=== PATIENT | female | born 1960 | race Caucasian/White ===

== ENCOUNTER → 2022-11-08 | Outpatient (CLI) | payer SELFPAY, OTHER ==
--- NOTE | 2022-11-08 09:30 | MRI_ITS ---
STUDY: MRI RIGHT KNEE REASON FOR EXAM: Female, 62 years old. Chronic knee pain. TECHNIQUE: Standardized fat and water weighted pulse sequences were obtained in all 3 orthogonal planes. COMPARISON: Left knee x-rays dated October 2022. FINDINGS: Marked loss of substance of the medial meniscus with truncation of the posterior horn, body and anterior horn and extrusion of the remnants of the medial meniscus. Near complete loss of articular cartilage of the medial femorotibial compartment with reactive subchondral bone marrow edema and osteophyte formation (coronal series 7 images 8-19). Mild MCL sprain (coronal series 7 image 15). Normal distal semimembranosus, gracilis and semitendinosus tendons. Normal lateral meniscus. Moderate thinning of the articular cartilage of the lateral femorotibial compartment with small osteophytes (coronal series 7 images 10-17). Normal proximal tibiofibular articulation. Normal lateral collateral (fibular) ligament. Normal popliteus tendon. Normal biceps femoris tendon. Normal anterior cruciate ligament (ACL). Normal posterior cruciate ligament (PCL). Lateral tilt and subluxation of the patella with moderate thinning of the articular cartilage of the patellofemoral compartment with reactive subchondral bone marrow edema and osteophytes (axial series 3 images 15-21). Normal medial and lateral patellar retinaculum. Normal quadriceps tendon. Normal patellar tendon. Normal Hoffa''s fat pad. Moderate to large joint effusion with large dissecting, septated popliteal cyst which is ruptured distally (axial series 3 images 9-21). Marked prepatellar subcutaneous soft tissue edema (sagittal series 4 images 8-18). Circumscribed septated lesion in the proximal tibia predominantly in the inner aspect of the lateral tibial plateau extending to the subarticular surface with intermediate signal intensity on the proton density images and predominantly high signal on the inversion recovery images. This lesion is most likely a simple cyst and has no aggressive features (coronal series 6 and 7 images 9-19).. MRI/Lower Ext Joint Only (Routine) IMPRESSION: Marked loss of substance of the medial meniscus with truncation of the posterior horn, body and anterior horn and extrusion of the remnant of the medial meniscus. Near complete loss of articular cartilage of the medial femorotibial compartment. Mild MCL sprain. Moderate thinning of the articular cartilage of the lateral femorotibial compartment. Lateral tilt and subluxation of the patella with moderate thinning of the articular cartilage of the patellofemoral compartment. Circumscribed lesion in the proximal tibia most likely representing septated cyst. No aggressive features associated with this lesion. Moderate to large joint effusion with large dissecting septated popliteal cyst rupture distally. Marked prepatellar subcutaneous soft tissue edema. Electronically Signed: Yifan Baldwin MD at 15:52 EDT ,
== END | disposition home or self-care (01) ==
PROVIDERS: PCP Family Medicine; Referring Provider Orthopaedic Surgery; Visit Provider Orthopaedic Surgery
DX: M85.661 Other cyst of bone, right lower leg (principal)
CPT/HCPCS: 73721

== ENCOUNTER → 2023-01-02 | Outpatient (CLI) | payer SELFPAY, OTHER ==
--- NOTE | 2023-01-02 06:48 | MRI_ITS ---
STUDY: MRI RIGHT KNEE, WITHOUT AND WITH IV CONTRAST REASON FOR EXAM: Female, 62 years old. Bone lesion, follow up to prior scan 11/25. TECHNIQUE: Standardized fat and water weighted pulse sequences were obtained in all 3 orthogonal planes. Following the intravenous administration of 15 cc Clariscan contrast, additional postcontrast imaging was obtained. COMPARISON: Right knee MRI dated 11/08/2022. FINDINGS: Again seen is a lobulated cystic subcortical lesion in the proximal tibia, overall measuring 2.9 cm AP, 2.9 cm transverse, and 3.0 cm craniocaudad. Following IV contrast administration, there is thin peripheral rim enhancement without internal enhancement, indicating nonaggressive cyst. Again seen is a horizontal tear of the posterior horn of the medial meniscus (sagittal T1 series 7 images 15-17). There is stable degenerative arthrosis of the medial femorotibial compartment with joint space narrowing, marginal osteophyte formation, high-grade chondromalacia, and subchondral marrow edema on both sides of the joint. Normal medial collateral ligamentous complex (MCL). Normal distal semimembranosus, gracilis and semitendinosus tendons. Normal lateral meniscus. Normal hyaline cartilage of the lateral femorotibial compartment. There is mild osteoarthritic spur formation of the lateral knee compartment. Normal proximal tibiofibular articulation. Normal lateral collateral (fibular) ligament. Normal popliteus tendon. Normal biceps femoris tendon. Normal anterior cruciate ligament (ACL). Normal posterior cruciate ligament (PCL). There is mild osteoarthritic spur formation of the patellofemoral compartment. Normal hyaline cartilage of the patellofemoral compartment. Normal medial and lateral patellar retinaculum. Normal quadriceps tendon. Normal patellar tendon. Normal Hoffa''s fat pad. There is a stable small joint effusion. There is a stable small popliteal cyst. The soft tissues are unremarkable. MRI/Lower Ext Joint Only W/WO Cont IMPRESSION: 2.9 x 2.9 x 3.0 cm nonaggressive cyst in the proximal tibia. Persistent horizontal tear of the posterior horn of the medial meniscus. Persistent tricompartment degenerative arthrosis, most severe in the medial femorotibial compartment. Stable small joint effusion with stable small popliteal cyst. Electronically Signed: Corby Jones MD at 8:44 EDT ,
== END | disposition home or self-care (01) ==
PROVIDERS: PCP Family Medicine
DX: D49.2 Neoplasm of unspecified behavior of bone, soft tissue, and skin (principal)
CPT/HCPCS: 73723; A9575

== ENCOUNTER → 2023-01-24 | Outpatient (CLI) | payer SELFPAY, OTHER ==
--- NOTE | 2023-01-24 12:04 | CT_ITS ---
PROCEDURE: CT RIGHT KNEE WITHOUT CONTRAST REASON FOR EXAM: Female, 62 years old. Preoperative planning for the MakoPlasty Robotic knee surgery. Knee pain. TECHNIQUE: Transaxial CT of the hip, knee and ankle were obtained. Coronal and sagittal reconstruction images of the knee were provided. Individualized dose optimization techniques were used for this CT. COMPARISON: None. FINDINGS: Standard protocol for the preoperative planning for the MakoPlasty robotic knee surgery was performed. Osteopenia with moderate arthrosis of the right hip, moderate tricompartmental arthrosis of the knee with large subchondral cyst of the proximal tibia measuring approximately 3 cm in widest diameter and mild arthrosis of the tibiotalar joint. CT/Extremity Lower without Contra IMPRESSION: Preoperative MakoPlasty Robotic knee surgical CT evaluation with findings as described above. Electronically Signed: Yifan Baldwin MD at 12:32 EST ,
== END | disposition home or self-care (01) ==
LOC: CT 11:48
PROVIDERS: PCP Family Medicine; Referring Provider Orthopaedic Surgery; Visit Provider Orthopaedic Surgery
DX: M17.11 Unilateral primary osteoarthritis, right knee (principal)
CPT/HCPCS: 73700

== ENCOUNTER 2023-01-31 05:15 | Day surgery (SDC) | payer SELFPAY, OTHER ==
[2023-01-24 13:14] LABS: Absolute Neutrophil Count 3.5 X10^3/uL (2.0-7.7); Basophil# 0.04 X10^3/uL; Basophil% 0.7 % (0-1); Eosinophil# 0.15 X10^3/uL; Eosinophils% 2.7 % (0-5); Hematocrit 37.6 % (37-47); Hemoglobin 12.4 g/dL (12.0-15.0); Mean Corpuscular Hgb 29.7 pg (27.0-32.0); Mean Platelet Vol. 9.5 fl (6.2-12.0); Monocyte# 0.63 X10^3/uL; Monocyte% 11.1 % (0-10); NRBC Flagged by Analyzer 0 % (0-5); Neutrophil # 3.52 X10^3/uL (2.7-7.7); Neutrophil % 62.1 % (47-70); Platelet Count 274 K/mm3 (150-450); RBC Distribution Width SD 42.8 fl (35.1-43.9); Red Blood Count 4.18 M/mm3 (4.2-5.4); White Blood Count 5.7 K/mm3 (4.4-11.0)
[2023-01-24 13:21] LABS: International Normalized Ratio 0.9; Prothrombin Time (Protime)PT. 12.5 SECONDS (11.7-14.9)
[2023-01-24 13:31] LABS: Hemoglobin A1c 5.6 % (3.8-5.6)
[2023-01-24 13:43] LABS: Anion Gap 3 (5-15); BUN 20 mg/dL (7-18); BUN/Creat Ratio 27.3 RATIO (10-20); Calcium,Total 9.2 mg/dL (8.5-10.1); Chloride 109 mmol/L (98-107); Creatinine, Serum 0.73 mg/dL (0.55-1.02); EST Glomerular Filtration Rate 85 mL/min (>60); Est Glom Filt Rate - Afr Amer 103 mL/min (>60); Glucose 90 mg/dL (74-106); Magnesium 2.3 mg/dL (1.6-2.6); Potassium 4.2 mmol/L (3.5-5.1); Sodium Level 140 mmol/L (136-145)
[2023-01-27 07:07] LABS: Fructosamine 252 umol/L (0-285)
[2023-01-31] VITALS (11 sets, daily range): BP systolic 102–151; BP diastolic 57–79; PULSE 52–75; RESP 14–16; TEMP 36.1–36.3; O2SAT 94–100; BMI 31.4
[2023-01-31] MEDS: Magnesium 1 GM over 15 mins IV (05:50)
[2023-01-31] MEDS: Lactated Ringers 1,000 ML 15 ML IV (06:01)
[2023-01-31] MEDS: Celecoxib 200 MG Capsule 400 MG PO (06:02)
[2023-01-31] MEDS: Gabapentin 600 MG Tablet PO (06:05)
[2023-01-31] MEDS: Scopolamine 1mg/72hr Patch 1 PATCH TD (06:05)
[2023-01-31] MEDS: Acetaminophen 500 MG Tablet 1000 MG PO ×2 (06:05→13:05)
[2023-01-31 06:33] LABS: Bedside Glucose 94 mg/dL (74-106)
--- NOTE | 2023-01-31 07:26 | HP.PCM_ITS ---
History and Physical Date of Admission: 01/31/23 [facility] [address] [place] [address] OFFICE VISIT Date of Service: 11/13/22 MR#: [id number] Acct: [id number] Name: RITU DEE Rep #: [id number] : 1960 Provider: Dr. Seven Briggs DO Age/Sex: 62/F Location: [facility] Status: Signed Intake Vital Signs 10/30/2313:04 Height 5 ft 2 in Weight: 172 lb BMI 31.4 Intake Visit Reasons: BI LAT KNEES Chief Complaint: BL knee MRI review Accompanied by: Is patient in pain?: Yes Pain scale (1-10): 5 Allergies No Known Allergies Allergy (Unverified 11/13/22 11:26) Medications NK 10/30/22 [History Confirmed 11/13/22] PFSH Surgical History H/O: hysterectomy History of left knee surgery Social History household members: spouse Smoking Status: Never smoker alcohol intake: never HPI BI LAT KNEES Details: Parts of this documentation were recorded by a scribe, this documentation accurately reflects the service provided and the decisions made by me, Dr. Seven Briggs DO 11/13/22 0825. RITU DEE is a 62 year old F here today for BL knee f/u right knee MRI review. To recall: Patient states that her right knee is worse. Patient notes that she has had knee pain for a few years with her pain worsening. She denies any known injury. Patient had a knee surgery in 2006 on her left knee for a mensicus tear. She complains of pain over her medial knee. Patient denies any popping or clicking. Patient states that her legs feel weak. Patient has increased pain with gardening, ambulation or stairs. Patient denies any injections or bracing. She denies any physical therapy. Patient notes that she has tried topical ointments which were slightly helpful. Patient has tried ibuprofen which gave her relief. No personal or family history of any tumors. Ortho Exam General General: Yes no acute distress Neurologic: Yes alert and Yes oriented x3 Psychologic: Yes reasonable and appropriate Right Knee Skin/Wound: Yes CDI, No erythema, No ecchymosis and No swelling Knee ROM: Yes ROM-Extension -20 to 0 and Yes ROM-Flexion 0-140 (118) Examination: Yes Med jt line tenderness, No Lat jt line tenderness, Yes Crepitus and No Tina's Test Stability: NML: Anterior Drawer, NML: Posterior Drawer and NML: Varus 30 and 1+: Valgus 30 (3mm gapping) Patella Translation: 1 Patella Grind: No KNEE: varicose veins. good ankle ROM. normal sensation to light palpation bilaterally. Left Knee Skin/Wound: Yes CDI, No ecchymosis, No erythema and No swelling Homans Sign: No Knee ROM: Yes ROM-Extension -20 to 0 and Yes ROM-Flexion 0-140 (112) Examination: Yes med jt line tenderness, No Lat jt line tenderness and No Tina's Test Stability: NML: Anterior Drawer, NML: Posterior Drawer and NML: Varus 30 and 1+: Valgus 30 (2mm gapping) Patella Translation: 1 KNEE: varus deformity Supplemental Info 11/08/2022 MRI right knee: Marked loss of the substance of the medial meniscus with truncation of the posterior horn and extrusion of the body and anterior horn of the remnant of the meniscus. Near complete loss of articular cartilage of the medial compartment. Moderate thinning of the articular cartilage of the lateral compartment. Lateral tilt and subluxation of patella with moderate thinning of the articular cartilage. Circumscribed lesion of the proximal tibia most likely representing a septated cyst. It has no aggressive features. Moderate joint effusion. Marked prepatellar subcutaneous soft tissue edema. 10/30/2022 x-ray left knee: Moderate to advanced medial compartment arthrosis with joint space narrowing subchondral sclerosis and bone spurs moderate trochlear arthrosis 10/30/2022 x-ray right knee: Mild to moderate medial joint space narrowing and arthrosis there is a relatively large cyst in the proximal tibia below the joint surface undermining the tibial spine and lateral tibial plateau it is loculated, mild to moderate patellofemoral arthrosis Coding Level of Care Code Off vis,est,level 3 Diagnoses Primary osteoarthritis of right knee M17.11 Osteoarthritis type: primary Bone cyst of tibia M85.669 Assessment and Plan Assessment and Plan (1) Right knee DJD: Status: Acute Qualifiers: Osteoarthritis type: primary Qualified Code(s): M17.11 - Unilateral primary osteoarthritis, right knee (2) Bone cyst of tibia: Status: Acute Plan Patient educated that the MRI demonstrated Circumscribed lesion of the proximal tibia most likely representing a septated cyst. It has no aggressive features, however it does complicate the surgery as result in a bone void that will require additional surgery and implants that spanned the defect with a stem. Educated that she does however have more cartilage loss on the MRI than what the xrays demonstrated. Treatment options for the OA of the right knee are do nothing or PT or bracing or steroid injection or viscosupplementation or TKA. Risks, benefits and alternatives of surgery reviewed including but not limited to bleeding, infection, nerve, artery and/or tissue damage, fracture, VTE, mechanical feel of the knee, continued pain, stiffness and expected post- operative course. Discussed Serafin robotic assist along with MAMI acevedo. Educated that d/t her cyst in the bone she Would have to have a stem . She would be a same day surgery. Patient aware that she will be in PT right after surgery to gain ROM. Discussed recovery period is typically 2 yrs however usually by 3 months most people are happy they had a performed but she will continue to improve for up to 2 years post op. Discussed prophylactic ATBs and the risk of infection after joint replacement surgery. She wishes to proceed with scheduling surgery 01/09/23. Follow up for IOVERA tx or sooner if pain, swelling, numbness or associated symptoms, or concerns develop. All questions answered. Patient in agreement of plan. 11/13/22 1322 <Electronically signed by Seven Briggs DO> Date Seven Briggs DO Cosigner Signature: Date (if applicable) I have examined the patient the following changes are noted: Patient has subsequently seen orthopedic oncology and images reviewed with them they do not feel any further workup or biopsy is necessary and she was cleared to proceed with total knee arthroplasty.
--- NOTE | 2023-01-31 07:30 | KNEE_PTH ---
PATIENT: RITU DEE LOC: [facility] [place] U#:[id number] AGE/SX: 62/F ROOM: RE01/31/[address]: Dr. Seven Briggs DO : 1960 BED: DIS: 01/31/2023 SPEC #: [id number] RECD: 01/31/23 13:56 STATUS: NICK REQ #: [id number] FAUSTO: 01/31/23 07:[address]: Seven Briggs DEPT: SURGICAL PATHOLOGY RECD BY: Emily Collazo ENTERED: 02/01/23 13:00 SP TYPE: TOTAL KNEE OTHR DR: Dr. Ankur Irizarry MD Tissues: A - CYST B - Knee, NOS Procedures: Decalcification bone/plaque Surgery Specimen Level IV HEADER OPERATION: ERAS, Right total knee replacement robotic arm assisted PRE-OP DIAGNOSIS: Right knee DJD, bone cyst of right tibia TISSUE SUBMITTED: A - Right tibial bone cyst, B - Right knee resection MICROSCOPIC DIAGNOSIS A. Right tibial bone cyst, biopsy: Fragments of fibrocartilaginous tissue, fibroconnective tissue and bone with chronic inflammation and fibrinous exudation. B. Right knee, total knee replacement/resection: Pieces of bone with degenerative osteoarthritic changes. Fragments of fibroadipose tissue, fibroconnective tissue, skeletal muscle tissue and reactive synovial tissue. BERKLEY:vaibhav 02/07/2023 MICROSCOPIC DESCRIPTION Slides are reviewed. GROSS DESCRIPTION A - Received in fixative is one container labeled with the patient's name and designated right tibial bone cyst. The specimen consists of multiple irregular fragments of light to dark harrison soft tissue that in aggregate measure 5.0 x 4.0 x 1.0 cm. The specimen is totally submitted in two cassettes. B - Received is one container designated right knee resection. The specimen consists of multiple fragments of harrison-yellow bone measuring in aggregate 13.0 x 9.0 x 2.2 cm. Also in the specimen container are multiple fragments of yellow-white soft tissue measuring in aggregate 4.0 x 3.0 x 2.0 cm. A number of bony fragments contain articular surfaces consistent with tibial plateau and femoral condyle and displaying prominent osteophyte formation, eburnation and bone erosion. Anaesthesiologist sections are submitted in two cassettes as follows: 1 - soft tissue, 2 - bone after decalcification. / AM:vaibhav 02/01/2023 TC:5 CPT: 35760 x2, 47393
[2023-01-31] MEDS: Cefazolin 2 GM in 0.9% Normal Saline (100mL Bag) 100 ML IV (07:39)
[2023-01-31] MEDS: dexAMETHasone 10 MG/ML Vial IV (07:40)
[2023-01-31] MEDS: TXA 1000mg in NS100 100ml (IVPB at Incision) 660 MG IV (07:50)
[2023-01-31] MEDS: TXA 1000mg in NS100 100ml (IVPB at Closure) 660 MG IV (08:16)
[2023-01-31] MEDS: dexAMETHasone 4 MG/ML Vial (09:40)
[2023-01-31] MEDS: Bupivacaine 0.5% PF 10 ML VIAL (09:40)
[2023-01-31] MEDS: Epinephrine (1 mg/ml) 1 MG/ML VIAL (09:40)
[2023-01-31] MEDS: 0.9% Normal Saline (Pres. free 10 ML Vial (09:40)
--- NOTE | 2023-01-31 10:48 | RAD_ITS ---
STUDY: X-RAY - RIGHT KNEE REASON FOR EXAM: Female, 62 years old. Post op in pacu -- in PACU TECHNIQUE: 2 view(s) of the knee. COMPARISON: Comparison is made with prior study October 30, 2022. FINDINGS: Normal visualized distal femur. Normal visualized proximal tibia and fibula. Normal proximal tibiofibular articulation. The patient is status post total knee replacement. There is good alignment. Postoperative soft tissue changes. RAD/Knee 1 or 2 Views IMPRESSION: Status post total knee replacement. There is good alignment. Postoperative soft tissue changes. Electronically Signed: James Gore MD at 16:07 EST ,
--- NOTE | 2023-01-31 10:49 | OP.PCM_ITS ---
Operative Report Date of Procedure: 01/31/23 Preoperative diagnosis: Right knee DJD large bone cyst proximal tibia creating bone void Postoperative diagnosis: Same Procedure: Right total knee arthroplasty CT guided Robotic Assisted with additional hardware required to bridge bone defect that required insertion of cone and stem Implant: Amira triathlon press fit, femoral component size 3, cemented tibial baseplate size 2, asymmetric patella size 32, polyethylene X3 size 9 CS, size a tibial cone, 50 x 12 tibial stem Anesthesia: Spinal with adductor canal block Tourniquet time: 16 minutes at 300 mmHg Complications: None Condition: Stable to PACU Estimated blood loss: 175 cc Press Cutter Tab Yanez. My physician child welfare assistant was a vital part of this case. He was important in appropriate retraction during the case, and protection of soft tissues during procedure. His intimate knowledge of the case and my steps aided in safe and expedient completion of the procedure as well as appropriate position of the extremity during the case. He was also vital in assisting with closure under my direct supervision. Indication for procedure: This is a 62-year-old female with long standing degenerative joint disease of the knee who has failed conservative treatment and wished to proceed with elective total knee arthroplasty, in addition patient had large proximal tibial bone cyst which was worked up with MRI and cleared by orthopedic oncology to surgery. Bone cyst created large bone void in proximal tibia that mitigated additional hardware. Risk benefits and alternatives were reviewed including; risk of bleeding, infection, nerve artery and tissue damage, continued pain, postoperative stiffness, venous thromboembolism, need for postoperative rehabilitation, mechanical feel to the knee, and expected postoperative course. The pre- operative CT and templating was performed with component sizing. Procedure: The patient was met in the preoperative holding area. The operative extremity was identified by both patient and physician and was marked. Patient was met by anesthesia. An adductor canal block was placed by anesthesia postoperatively the patient was brought back to the operating room on a wheeled cart and transferred to the operating table in the supine position. Anesthesia was started. A well-padded tourniquet was placed on the operative extremity. The patient was prepped and draped in the usual sterile fashion. A timeout was called to ensure the proper patient procedure and extremity were being contemplated. An esmarch was used to exsanguinate the extremity. The tourniquet was inflated. A 10 blade scalpel was used to make a midline incision down through the skin and subcutaneous tissue. Skin retractors placed. Bovie and Aquamantis were used to perform meticulous hemostasis. full-thickness flaps were elevated medial and lateral along the joint capsule. A deep blade scalpel was used to perform a medial parapatellar arthrotomy. The knee was brought to full extension. A bovie was used to release the soft tissues off the most proximal aspect of the medial tibial plateau, a three-quarter inch curved osteotome was also used in this process. The infrapatellar fat pad was excised. The suprapatellar fat pad was excised partially anteriorolateraly and portion the anterioromedial pad was elevated from the femur. At this point our intra- articular femoral array was placed at a 45 degree angle proximal and posterior to the medial epicondyle. femoral checkpoint was placed at this time. Our tibial array was placed greater than 1 hands breath below the incision at a 20 degree angle stab incisions were made with a 15 blade scalpel and pins were placed and attached to the tibial array , tibial checkpoint was placed in the proximal tibial metaphysis. Tourniquet was let down. At this point registration solorio were taken throughout the knee . Once the knee was registere d we then tensioned the medial and lateral ligaments in extension and 90 degrees of flexion. We then used these numbers to adjust our components within parameters to balance the knee in both flexion and extension once this was done on our monitor we then proceeded with using the robotic arm to make our tibial plateau cut, anterior and posterior chamfer and distal femur cuts. we removed the cut fragments with the use of a bovie and Amy, we did use a lamina warehouse operations associate to insure we visualized and removed all posterior osteophytes and at this time also used the Aquamantis on the posterior joint capsule. we then trialed and achieved the desired plan with a well-balanced knee. we used the green probe to aure the corresponding tibial rotation based on our CT template. Lug holes were drilled in the femur. Attention was then turned toward the tibial bone cyst the cyst was curetted and sent for pathology and had a benign appearance with gelatinous filling. Intramedullary guide eulalia was passed down the tibia we then sequentially reamed to a size 14 for appropriate 12 mm stem. We reinserted the 12 mm reamer to allow right posterior pole for the cone drill over top. The cone reamer was used to excise a which was very 2 mm. This effectively removed the sclerotic bone and filled the defect of the bone cyst. We then inserted a trial cone. the tibia preparation was completed with the appropriate sized base plate pinned based on previous rotation aure. An appropriate sized fin punch was used on the tibia. We thoroughly irrigated the canal we did use a Betadine rinse which was allowed to sit for several minutes and then was washed out. We trialed our tibial stem and baseplate construct. Trial components were removed a posterior capsular injection was preformed with our standard cocktail. In addition the aqua Mantis was also used to aid in hemostasis. We then proceeded by placing a cement restrictor using a cement gun we filled the tibia the undersurface of the tibial baseplate was covered with cement, the implant was inserted it was held with direct pressure until cement hardened excess cement was removed with a curette and elevator. We then proceeded to place the 9 mm polyethylene CS component . Followed by the press-fit femoral and tibial components We then brought the knee through range of motion with excellent patellar tracking. We thoroughly irrigated the knee. Betadine rinse was allowed to sit and washed out completely. Components were press-fit into place. Aricept rinse was then used followed by several more liters of irrigation after it was allowed to sit. The joint capsule was closed with #1 Ethibond [id number] followed by Vicryl in the subcutaneous tissues with thompson in the skin. Arrays and checkpoints were removed prior to closure all counts were correct stab incisions were closed with a staple standard dressing in the form of Mepilex AG for the main incision and a small Mepilex over the pin holes. Thigh-high ARTHUR hose applied over top of dressing. Patient tolerated the procedure well and was directed to PACU in stable condition . There were no intraoperative complications.
[2023-01-31] MEDS: Cefazolin 1 GM/50 ML BAG IV (12:59)
[2023-01-31] MEDS: Lactated Ringers 1,000 ML 125 ML IV (13:00)
--- NOTE | 2023-01-31 13:29 | DCINST_ITS ---
Discharge Instructions Diet Discharge Diet: No restrictions Dressing / Incision Call your doctor if you observe: Shortness of breath and Chest pain Additional Dressing/Incision Instructions:: Ice and elevate lower extremities 2 weeks while not ambulating. Ambulation is encouraged. Weight bearing as tolerated. Use assistive devise for stability. Encourage FULL knee extension and flexion 1 time EVERY time you get up and down and MULTIPLE times per day. No showering until 72 hours after surgery. Begin showering postop day #3. Remove the dressing prior to shower and gently wash with warm water and antibacterial soap then pat dry and place abdominal pad (or plain gauze) and ARTHUR hose over top. This is to be done daily. Do not submerge for 3 weeks. If not showering daily after the initial 72 hours then you must clean incision and change dressing daily. Do not allow animals near the incision area. Keep clean. Follow anti-coagulation recommendations as prescribed. Do not take any NSAIDs while on blood thinner. Do not take any additional narcotic pain medication other than what was prescribed on your surgery day without discussing with physician. Narcotic medication can be addictive. Do not drink alcohol while taking narcotics. Supplement narcotic prescription with acetaminophen 1000 mg 4 times a day. Start physical therapy. If you are not currently scheduled for physical therapy or you are unsure of appointment time please call office [place] to arrange. Call Dr. Briggs with any concerns. Follow Up Care Please Follow Up With: Seven Briggs DO When: 2 weeks Test Results: Test results from this visit will be discussed in further detail at your follow- up appointment, if applicable. Discharge Plan Admission Primary Reason for Your Visit: right total knee arthroplasty Attending Provider: Seven Briggs Primary Care Provider: Ankur Irizarry Discharge Orders/Prescriptions Prescriptions: New acetaminophen [acetaminophen] 500 mg tablet 1,000 mg PO Q6H PRN Qty: 100 0RF cephalexin [cephalexin] 500 mg capsule 1,000 mg PO Q8 Qty: 4 0RF Rx Instructions: take 2 tabs at 9:00 pm and 2 tabs after 5 am when you wake up oxycodone 5 mg tablet 5 - 10 mg PO Q4H PRN (Reason: pain) 7 Days Qty: 60 0RF Eliquis 2.5 mg tablet 2.5 mg PO BID Qty: 28 0RF Rx Instructions: begin morning after surgery No Action NK Other Ambulatory Orders: 12 Lead EKG (Routine) Timeframe: 20230124 Location: None Selected Ordered By: Dr. Seven Briggs Referrals / Follow Up: Ankur Irizarry MD [Primary Care Provider] - Disposition Disposition (needs filled in before D/C Order can be placed): Home, Self Care
== END 2023-01-31 17:43 | disposition home or self-care (01) ==
LOC: SDC 05:54 → AC 05:56
PROVIDERS: PCP Family Medicine; Referring Provider Orthopaedic Surgery; Visit Provider Orthopaedic Surgery
PROC: 0SRC0JZ Replacement of Right Knee Joint with Synthetic Substitute, Open Approach (ICD-10-PCS; CPT 27447; principal; 2023-01-31 07:00)
DX: M17.11 Unilateral primary osteoarthritis, right knee (principal); M85.661 Other cyst of bone, right lower leg
CPT/HCPCS: 27447; S2900; 64447; 01402; 36415; 73560; 80048; 82962; 82985; 83036; 83735; 85025; 85610; 85730; 86850; 86900; 86901; 87081; 88304; 88305; 88311; 93005; 97162; C1776; J7120; J2405; J3475; J3490

== ENCOUNTER → 2023-05-04 | Outpatient (CLI) | payer SELFPAY, OTHER ==
--- NOTE | 2023-05-04 12:10 | CT_ITS ---
CT LEFT LOWER EXTREMITY WITH 3-D IMAGING CLINICAL INDICATION: templating for left TKA TECHNIQUE: Axial CT images of the LEFT lower extremity was performed without IV contrast material. Coronal and sagittal reformats were provided. RADIATION DOSAGE (If Supplied By Facility): CTDIvol = ( 18.15 ) mGy, DLP = ( 1112.31 ) mGycm COMPARISON: Prior study dated: October 30, 2022. FINDINGS: Bones: Imaging of the hip joint was obtained. Subchondral cystic changes are seen in the level of the acetabulum. Mild degree of joint space narrowing. Imaging of the knee joint was obtained. Marked degree of joint space narrowing and degenerative spur formation involving the medial compartment of the knee joint. There is evidence of a 1.1 cm subchondral cyst along the medial distal femoral condyle. Anterior spur formation at the level of the patellofemoral joint. Small subchondral cystic changes are seen in the posterior aspect of the proximal tibia. Imaging of the ankle was obtained. No significant abnormality is seen. Soft Tissues: Joint effusion. The superficial soft tissues are unremarkable without evidence of edema, hematoma, or foreign body. CT/Extremity Lower without Contra IMPRESSION: Marked degree of joint space narrowing and degenerative changes of the medial compartment of the knee joint and patellofemoral joint. Subchondral cysts seen in the left acetabulum as well as the medial femoral condyle and proximal tibial metaphysis. Electronically Signed: James Gore MD at 14:19 EST ,
--- OUTSIDE RECORDS SUMMARY | 2023-05-04 12:22 | XMS RPT_ITS | CCD ---
Author Name Unknown Address [address] [place] [address] Organization [facility] Care Team Providers Care Interrelated Special Education Teacher Name Role Phone Unavailable Primary Care Provider UnavailCARMELO Amaral Attending Unavailable SEVEN GLEASON JR. Referring Unavailable SEVEN GLEASON JR. Referring Unavailable CARMELO MARIE Attending Unavailable Medications Current Medications Medication Drug Class(es) Dates Sig (Normalized) Sig (Original) ibuprofen 200 mg oral tablet (1 source) Nonsteroidal Anti-inflammatory Drug take 3 tablets by mouth every eight hours as needed Ibuprofen 200 MG tablet Take 3 tablets by mouth every 8 hours as needed for Mild Pain. 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; Translations: [Neoplasm of unspecified behavior of bone, soft tissue, and skin] Onset: 11-30-2022 12-19-2022 Episodic Other bone disease and musculoskeletal deformities (2 sources) Disorder of bone, unspecified; Translations: [Disorder of bone and cartilage, unspecified] Onset: 12-19-2022 12-19-2022 Episodic Other bone disease and musculoskeletal deformities (2 sources) Other cyst of bone, unspecified site; Translations: [Other cyst of bone, unspecified site] Onset: 01-03-2023 Episodic Past or Other Problems Problem Classification Problem Date Documented Da te Episodic/Chronic Mood disorders (1 source) Mood disorders Onset: 12-13-2022 12-13-2022 Vital Signs Date Time Vital Sign Value Performing Clinician Garrett sneed 12-13-2022 09:41-0400 Body height 155 cm Carmelo Marie MD Work Phone: [facility] 12-13-2022 09:41-0400 Body mass index (BMI) [Ratio] 32.19 kg/m2 Carmelo Marie MD Work Phone: [facility] 12-13-2022 09:41-0400 Body temperature 97.3 [degF] Carmelo Marie MD Work Phone: [facility] 12-13-2022 09:41-0400 Body weight 77.34 kg Carmelo Marie MD Work Phone: [facility] 12-13-2022 09:41-0400 Diastolic blood pressure 77 mm[Hg] Carmelo Marie MD Work Phone: [facility] 12-13-2022 09:41-0400 Heart rate 78 /min Carmelo Marie MD Work Phone: [facility] 12-13-2022 09:41-0400 Respiratory rate 16 /min Carmelo Marie MD Work Phone: [facility] 12-13-2022 09:41-0400 SaO2% (BldA) [Mass fraction] 96 % Carmelo Marie MD Work Phone: [facility] 12-13-2022 09:41-0400 Systolic blood pressure 144 mm[Hg] Carmelo Marie MD Work Phone: [facility] Encounters Encounter Date Encounter Type Care Provider Facility Start: 01-03-2023 ambulatory SEVEN GLEASON JR. Faci lity:[facility] Start: 12-13-2022 ambulatory CARMELO MARIE Facility :[facility] Start: 12-13-2022 End: 12-13-2022 Office outpatient new 45 minutes Carmelo Marie MD Work Phone: Department of Orthopaedics Plan of Treatment Date Care Activity Detail Author Start: 12-13-2022 End: 12-14-2023 MR Knee - right WO and W contrast IV MRI KNEE RIGHT WITH AND WITHOUT CONTRAST Imaging Routine Bone neoplasm Expected: 12/13/2022, Expires: 12/14/2023 [facility] Social History Date Type Detail Facility Start: 12-13-2022 Tobacco smoking stat us NHIS Never smoked tobacco [facility] Start: 12-13-2022 Alcohol intake Lifetime non-d vesna (finding) [facility] Start: 12-13-2022 History of Social function [facility] Start: 12-13-2022 Tobacco use panel [facility] Adolescent depressio n screening assessment 0 [facility] Start: 1960 Sex Assigned At Not on file O [facility] History of Present illness Narrative 12-13-2022 Yifan Samson MD - 12/13/2022 9:30 AM EDTCjeronimo Marie MD - 12/13/2022 9:30 AM EDT Note Date & Type Note Facility 12-13-2022 History of Present illness Narrative Orthopaedic Oncology Initial Office Visit Chief Complaint: right knee pain Ritu Dee is a 62 y.o. female referred to the orthopedic oncology office by Dr. Chester Chaparro for evaluation of right knee pain. She has a right proximal tibia lesion and presents for clearance for TKA given the lesion seen on XR and MRI. She reports a long history of right knee pain that is activity limiting and desires TKA. She has no cancer history, fevers, chills, unintentional weight loss. Oncology History Oncologic Diagnosis: none Medical Oncologist: Prior Chemotherapy: none Radiation Oncologist: Prior Radiation Therapy: none Social History: Social History Socioeconomic History Marital status: Tobacco Use Smoking status: Never Substance and Sexual Activity Alcohol use: Never Drug use: Never Review of Symptoms: A complete review of systems has been completed and is negative except for what is noted in the HPI. No past medical history on file. Past Surgical History: Procedure Laterality Date HYSTERECTOMY KNEE SURGERY Left No Known Allergies No outpatient medications prior to visit. No facility-administered medications prior to visit. Social History Socioeconomic History Marital status: Spouse name: Not on file Number of children: Not on file Years of education: Not on file Highest education level: Not on file Occupational History Not on file Tobacco Use Smoking status: Not on file Smokeless tobacco: Not on file Substance and Sexual Activity Alcohol use: Not on file Drug use: Not on file Sexual activity: Not on file Other Topics Concern Not on file Social History Narrative Not on file Social Determinants of Health Financial Resource Strain: Not on file Food Insecurity: Not on file Transportation Needs: Not on file Physical Activity: Not on file Stress: Not on file Social Connections: Not on file Intimate Partner Violence: Not on file Housing Stability: Not on file No family history on file. Physical Exam BP 144/77 (BP Location: Right arm, BP Position: Sitting) Pulse 78 Temp 97.3 F (36.3 C) (Oral) Resp 16 Ht 1.55 m (5' 1.02 ) Wt 77.3 kg (170 lb 8 oz) SpO2 96% BMI 32.19 kg/m Body mass index is 32.19 kg/m . General: NAD RLE: No palpable masses. Hip and knee flexion and extension are intact actively with 5/5 strength. Motor is intact for TA/gastrocnemius, EHL, and FHLwith 5/5 strength. Dorsalis pedis and posterior tibial artery are 2+. No tenderness to palpation at the toes, foot, ankle (medial and lateral malleolus), tibia or fibula, knee, femur, or hip. Mild medial joint line tenderness. Motion 0-100. Log roll negative for pain. No pain on axial load. Imaging Review: I personally and independently reviewed and interpreted the following imaging studies. XR right knee 10/30/22: osteoarthritis. There is a well circumscribed lucent proximal tibial epiphyseal lesion without periosteal reaction, cortical destruction MRI right knee without contrast 11/08/22: Osteoarthritis. Large Faust's cyst. Well circumscribed proximal tibial epiphyseal lesion. No periosteal reaction. There is mild perilesional edema. T1 hypointense, T2 hyperintense. Mild heterogeneity with internal septations but overall benign appearance. Pathology: None available for review Impression/Plan: Ritu Dee is a 62 y.o. female with right knee arthritis and associated right proximal tibia lesion that is likely a subchondral cyst/geode, however only non contrasted imaging is available for review and as such will obtain an MRI right knee with/without contrast to complete workup prior to clearance for TKA. We will discuss results via phone call after - they did come from 2 hours away today. All of the patient's questions were answered and she expressed understanding of the plan. The patient was instructed to call should she experience worsening symptoms or have any issues/questions prior to her follow-up appointment. Antonio Samson MD Orthopaedic Surgery, PGY-4 I have personally reviewed the resident's history and physical exam. I have personally discussed the pertinent portions of the history and physical exam with the patient today. I agree with all of the findings. To review, this is a 62 year old female with a longstanding history of right knee pain. She is been evaluated by the referring provider for this issue. X-rays and noncontrast MRI demonstrate severe tricompartmental arthritis of her right knee with a large subchondral cystic lesion involving her proximal tibia. I would favor a lesion of low biologic activity such as a subchondral cyst given her advanced degenerative changes, however given the size I would favor obtaining MRI with and without contrast to rule out any underlying neoplastic process. We will review these images once they are obtained and touch base with the patient with additional recommendations at that time. The patient and her are on board with the above plan and will reach out with further questions or concerns in the interim. documented in this encounter [facility] Instructions 12-13-2022 Patient Instructions Note Date & Type Note Facility 12-13-2022 Instructions Elo Camarillo RN - 12/13/2022 9:30 AM EDT Elo NAVARRO, RN, OCN Musculoskeletal Oncology Outpatient clinic nurse for : MD Dr. Papa West MD Dr. Joel Mayerson, MD [facility] Department of Orthopaedics 5th Floor, [address] [place] [address] (this number is covered by the answering service after hours, weekends and holidays) documented in this encounter [facility] Evaluation note Note Date & Type Note Facility documented in this encounter [facility] Summary Purpose Family History No Family History Records Found Advance Directives No Advanced Directives Records Found Additional Source Comments Reason for Visit (unrecogniz ed section and content) Specialty Diagnoses / Procedures Referred By Contact Referred To Contact Orthopaedic Surgery / Orthopaedics Diagnoses R KNEE CYST, NEEDS CLEARANCE FOR TKA , NATIVIDAD REQ IMAGES Procedures NEW PATIENT - ONCOLOGY Chester Chaparro, MD [address] [place] [address] Carmelo Marie MD [address] [place] [address] Referral ID Status Reason Start Date Expiration Date V isits Requested Visits Authorized [id number] New Request 12/13/2022 01/07/2024 1 1 INFORMATION SOURCE (unrecogn ized section and content) FOR RECORDS PERTAINING TO PATIENTS WHO ARE OR HAVE BEEN ENROLLED IN A CHEMICAL DEPENDENCY/SUBSTANCEABUSE PROGRAM, SOME INFORMATION MAY BE OMITTED. This clinical summary was aggregated from multiple sources. Caution should be exercised in using it in the provision of clinical care. This summary normalizes information from multiple sources, and as a consequence, information in this document may materially change the coding, format and clinical context of patient data. In addition, data may be omitted in some cases. CLINICAL DECISIONS SHOULD BE BASED ON THE PRIMARY CLINICAL RECORDS. [employer] provides no warranty or guarantee of the accuracy or completeness of information in this document.
== END | disposition home or self-care (01) ==
LOC: CT 12:00
PROVIDERS: PCP Family Medicine; Referring Provider Orthopaedic Surgery; Visit Provider Orthopaedic Surgery
DX: M17.12 Unilateral primary osteoarthritis, left knee (principal)
CPT/HCPCS: 73700

== ENCOUNTER 2023-05-15 05:25 | Day surgery (SDC) | payer SELFPAY, OTHER ==
--- NOTE | 2023-05-04 12:09 | EKG12_ITS ---
Test Reason : PREOP Blood Pressure : / mmHG Vent. Rate : 075 BPM Atrial Rate : 075 BPM P-R Int : 124 ms QRS Dur : 078 ms QT Int : 398 ms P-R-T Axes : 038 -19 013 degrees QTc Int : 444 ms Normal sinus rhythm Normal ECG Confirmed by WENDY LAZO, SELVIN ([id number]), scientific publications editor NEYMAR BELLE ([id number]) on 05/07/2023 6:54:28 AM Referred By: Seven Briggs Confirmed By:KEESHA NGUYEN MD
[2023-05-04 13:21] LABS: Absolute Lymphocyte Count 1.23 X10^3/uL (0.83-4.51); Absolute Neutrophil Count 3.5 X10^3/uL (2.0-7.7); Basophil# 0.03 X10^3/uL; Basophil% 0.6 % (0-1); Eosinophil# 0.11 X10^3/uL; Eosinophils% 2.1 % (0-5); Hematocrit 38.3 % (37-47); Hemoglobin 12.2 g/dL (12.0-15.0); Lymphocyte # 1.23 X10^3/ul (0.83-4.51); Mean Corp Hgb Conc 31.9 g/dL (32-36); Mean Corpuscular Hgb 28.1 pg (27.0-32.0); Mean Corpuscular Volume 88.2 fL (81-99); Mean Platelet Vol. 9.6 fl (6.2-12.0); Monocyte# 0.48 X10^3/uL; NRBC Flagged by Analyzer 0 % (0-5); Neutrophil # 3.49 X10^3/uL (2.7-7.7); Neutrophil % 65.1 % (47-70); Platelet Count 308 K/mm3 (150-450); RBC Distribution Width CV 12.8 % (11.6-14.6); RBC Distribution Width SD 41.1 fl (35.1-43.9); Red Blood Count 4.34 M/mm3 (4.2-5.4); White Blood Count 5.4 K/mm3 (4.4-11.0)
[2023-05-04 13:34] LABS: International Normalized Ratio 0.9; Prothrombin Time (Protime)PT. 12.1 SECONDS (11.7-14.9)
[2023-05-04 13:35] LABS: Partial Thromboplast Time 27.2 Seconds (24.1-36.2)
[2023-05-04 13:52] LABS: Magnesium 2.1 mg/dL (1.6-2.6)
[2023-05-04 13:55] LABS: Anion Gap 2 (5-15); BUN 13 mg/dL (7-18); BUN/Creat Ratio 18.4 RATIO (10-20); Calcium,Total 9.5 mg/dL (8.5-10.1); Chloride 109 mmol/L (98-107); EST Glomerular Filtration Rate 89 mL/min (>60); Est Glom Filt Rate - Afr Amer 107 mL/min (>60); Glucose 98 mg/dL (74-106); Potassium 3.7 mmol/L (3.5-5.1); Sodium Level 139 mmol/L (136-145)
[2023-05-06 08:08] LABS: Fructosamine 233 umol/L (0-285)
[2023-05-15] VITALS (10 sets, daily range): BP systolic 123–173; BP diastolic 67–90; PULSE 42–93; RESP 13–20; TEMP 36.3–36.7; O2SAT 95–100; BMI 31.1
--- OUTSIDE RECORDS SUMMARY | 2023-05-15 05:29 | XMS RPT_ITS | CCD ---
Author Name Unknown Address [email or web address] [place] [address] Organization [facility] Care Team Providers Care Barker Peeler Name Role Phone Unavailable Primary Care Provider CARMELO Mcclure Attending Unavailable CHESTER VELAZQUEZ, SEVEN Referring Unavailable CHESTER VELAZQUEZ, SEVEN Referring Unavailable CARMELO MARIE Attending Unavailable JALEN MAJANO MD Unavailable [phone] Medications Current Medications Medication Drug Class(es) Dates [...] (1 source) Mood disorders Onset: 12-13-2022 12-13-2022 NEGATED: Highlighted row has been ruled out!Unclassified (2 sources) No Problem Information Available Vital Signs Date Time Vital Sign Value Performing Clinician Faci lity 12-13-2022 09:41-0400 Body height 155 cm Carmelo Marie MD Work Phone: [facility] 12-13-2022 09:41-0400 Body mass index (BMI) [Ratio] 32.19 kg/m2 Carmelo Marie MD Work Phone: [facility] 12-13-2022 09:41-0400 Body temperature 97.3 [degF] Carmelo Marie MD Work Phone: [facility] 12-13-2022 09:41-0400 Body weight 77.34 kg Carmelo Marie MD Work Phone: [facility] 12-13-2022 09:41-0400 Diastolic blood pressure 77 mm[Hg] Carmelo Marie MD Work Phone: [facility] 12-13-2022 09:41-0400 Heart rate 78 /min Carmelo Marie MD Work Phone: [facility] 12-13-2022 09:41-0400 Respiratory rate 16 /min Carmelo Marie MD Work Phone: [facility] 12-13-2022 09:41-0400 SaO2% (BldA) [Mass fraction] 96 % Carmelo Marie MD Work Phone: [facility] 12-13-2022 09:41-0400 Systolic blood pressure 144 mm[Hg] Carmelo Marie MD Work Phone: [facility] Encounters Encounter Date Encounter Type Care Provider Facility Start: 01-03-2023 ambulatory SEVEN BRIGGS JR. Factodd lity:[facility] Start: 12-13-2022 ambulatory CARMELO MARIE Facility :[facility] Start: 12-13-2022 End: 12-13-2022 Office outpatient new 45 minutes Carmelo Marie MD Work Phone: Department of Orthopaedics Plan of Treatment Date Care Activity Detail Author Start: 12-13-2022 End: 12-14-2023 MR Knee - right WO and W contrast IV MRI KNEE RIGHT WITH AND WITHOUT CONTRAST Imaging Routine Bone neoplasm Expected: 12/13/2022, Expires: 12/14/2023 [facility] Social History Date Type Detail Facility Start: 12-13-2022 Tobacco smoking stat us NHIS Never smoked tobacco [facility] Start: 12-13-2022 Alcohol intake Lifetime non-d vesna (finding) [facility] Start: 12-13-2022 History of Social function [facility] Start: 12-13-2022 Tobacco use panel [facility] Adolescent depressio n screening assessment 0 [facility] Start: 1960 Sex Assigned At Not on file O [facility] Work Phone: Tobacco smoking consumption unknown [employer] [facility]; [facility] Work Phone: NEGATED: Highlighted row No Social History Information Available No Social History Information Available [facility]; [facility] [employer] [facility] Work Phone: History of Present illness Narrative 12-13-2022 Yifan Samson MD - 12/13/2022 9:30 AM EDTCjeronimo Marie MD - 12/13/2022 9:30 AM EDT Note Date & Type Note Facility 12-13-2022 History of Present illness Narrative Orthopaedic Oncology Initial Office Visit Chief Complaint: right knee pain Ritu Dee is a 62 y.o. female referred to the orthopedic oncology office by Dr. Chester Velazquez for evaluation of right knee pain. She [...] in the interim. documented in this encounter [facility] Instructions 12-13-2022 Patient Instructions Note Date & Type Note Facility 12-13-2022 Instructions Elo Camarillo RN - 12/13/2022 9:30 AM EDT Elo NAVARRO, RN, OCN Musculoskeletal Oncology Outpatient clinic nurse for : MD Dr. Papa West MD Dr. Joel Mayerson, MD [facility] Department of Orthopaedics 5th Floor, Room [address] [place] [phone] (this number is covered by the answering service after hours, weekends and holidays) documented in this encounter [facility] Evaluation note Note Date & Type Note Facility documented in this encounter [facility] Summary Purpose Family History No Family History Records Found Advance Directives No Advanced Directives Records Found Additional Source Comments Reason for Visit (unrecogniz ed section and content) Specialty Diagnoses / Procedures Referred By Contact Referred To Contact Orthopaedic Surgery / Orthopaedics Diagnoses R KNEE CYST, NEEDS CLEARANCE FOR TKA , NATIVIDAD REQ IMAGES Procedures NEW PATIENT - ONCOLOGY Seven Briggs Jr., MD [facility] [place] [address] Carmelo Marie MD [address] [place] [phone] Referral ID Status Reason Start Date Expiration Date V isits Requested Visits Authorized [id number] New Request 12/13/2022 01/07/2024 1 1 INFORMATION [...] BE BASED ON THE PRIMARY CLINICAL RECORDS. [employer] provides no warranty or guarantee of the accuracy or completeness of information in this document.
[2023-05-15] MEDS: Lactated Ringers 1,000 ML 15 ML IV (06:10)
[2023-05-15] MEDS: Scopolamine 1mg/72hr Patch 1 PATCH TD (06:11)
[2023-05-15] MEDS: Magnesium 1 GM over 15 mins IV (06:12)
[2023-05-15] MEDS: Acetaminophen 500 MG Tablet 1000 MG PO (06:13)
[2023-05-15] MEDS: Celecoxib 200 MG Capsule 400 MG PO (06:13)
[2023-05-15] MEDS: Gabapentin 600 MG Tablet PO (06:13)
[2023-05-15 06:20] LABS: Bedside Glucose 76 mg/dL (74-106)
--- NOTE | 2023-05-15 07:07 | HP.PCM_ITS ---
History and Physical Date of Admission: 05/15/23 [facility] [address] [place] [address] OFFICE VISIT Date of Service: 05/04/23 MR#: [id number] Acct: [id number] Name: RITU DEE Rep #: [id number] : 1960 Provider: Dr. Seven Briggs DO Age/Sex: 62/F Location: [facility] [place] Status: Signed with Addenda ADDENDUM by Marguerite Andrew on 05/04/23 at 1147 Office Procedure Documentation entered by Marguerite Andrew 05/04/23 11:47: Iovera Procedure Details:: Preoperative diagnosis : left DJD Postoperative diagnosis: Same Procedure: Cryotherapy with Iovera device to anterior femoral cutaneous nerve and 2 branches of the infrapatellar saphenous nerve III nerves in total Description of procedure: Patient was brought back to the procedure room the operative extremity was identified by both patient and physician. The PIP flexion crease was measured to the midpoint of the patella and this distance was divided in 3 resulting in 10 cm location proximal to the midpoint of the patella. This line was extended medial and lateral to the extent of the edges of the patella. This was our treatment line for the anterior femoral cutaneous nerve. A second treatment line was made 5 cm medial to the inferior pole of the patella and 5 cm distally. The leg was prepped with alcohol and Betadine. Lidocaine with epi was used along the treatment lines. Using the Iovera device treatment lines were treated with 1 minute cycles. Reproduction of paresthesias was monitored in the area of nerve distribution. Once all 3 nerves were treated across the 2 treatment lines patient was cleaned and a light dressing with 4 x 4 and Fer wrap was applied. Patient tolerated the procedure without complication. Date cc: ~* Signed Intake Vital Signs 01/31/2305:57 Height 5 ft 2 in Intake Visit Reasons: LEFT KNEE Allergies No Known Allergies Allergy (Verified 05/04/23 10:57) Medications amoxicillin 500 mg tablet 2,000 mg (4 x 500 mg) PO ONCE #4 tabs 04/23/23 [Rx Confirmed 05/04/23] multivitamin 15 ml PO DAILY 04/26/23 [History Confirmed 05/04/23] PFSH Medical History (Updated 05/04/23 @ 11:[address] Seven Briggs DO) Arthritis Non-smoker Wears glasses Wears partial dentures Surgical History (Updated 04/26/23 @ 11:40 by Delia Rodriguez) H/O: hysterectomy History of left knee surgery Hx of total knee replacement Social History household members: spouse Smoking Status: Never smoker alcohol intake: never HPI LEFT KNEE Details: This documentation accurately reflects the service provided and the decisions made by me, Dr. Seven Briggs DO 05/04/23 0802. Part of today?s visit was documented by [ ], acting as scribe. RITU DEE is a 62 year old F here today for Iovera treatment on left knee. DOS 05/15/2023. Ortho Exam General General: Yes no acute distress Neurologic: Yes alert and Yes oriented x3 Psychologic: Yes reasonable and appropriate Left Knee Skin/Wound: Yes CDI, No ecchymosis, No erythema and No swelling Homans Sign: No Knee ROM: Yes ROM-Extension -20 to 0 and Yes ROM-Flexion 0-140 (112) Examination: Yes med jt line tenderness, No Lat jt line tenderness and No Tina's Test Stability: NML: Anterior Drawer, NML: Posterior Drawer and NML: Varus 30 and 1+: Valgus 30 (2mm gapping) KNEE: varus deformity Head: Normocephalic Atraumatic Chest: symmetrical rise, non-labored breathing, no audible wheeze Abdomen: no guarding, non-rigid Supplemental Info 03/16/2023 x-ray right knee: Status post cemented coned and stemmed total knee arthroplasty without concern 10/30/2022 x-ray left knee advanced medial compartment arthrosis, moderate patellofemoral arthrosis Patient was a little hesitant upon arrival about following through with the total knee arthroplasty. After reviewing x-rays and talking about steroid injections she decided to go through with the surgery. Explained that the steroid injections might not give her as much relief as the surgery will. Coding Level of Care Code Attention Paperback Machine Operator Diagnoses Chronic pain of left knee M25.562; G89.29 Chronicity: chronic Assessment and Plan Assessment and Plan (1) Left knee pain: Status: Acute Qualifiers: Chronicity: chronic Qualified Code(s): M25.562 - Pain in left knee; G89.29 - Other chronic pain Plan Iovera procedure performed today left knee no complications patient scheduled for total knee arthroplasty soap and drinks dispensed patient has a walker and an ice machine at home 05/04/23 1145 <Electronically signed by Seven Briggs DO> Date Seven Briggs DO Cosigner Signature: Date (if applicable) CC: ~ I have examined the patient and the H&P has been reviewed. There are no clinical changes since date of exam.
[2023-05-15] MEDS: Cefazolin 2 GM in 0.9% Normal Saline (100mL Bag) 100 ML IV (07:28)
--- NOTE | 2023-05-15 07:30 | KNEE_PTH ---
PATHOLOGY RESULTS PATIENT: RITU DEE LOC: [facility] [place][id number] AGE/SX: 63/F ROOM: RE05/15/[address]: Dr. Seven Briggs DO : 1960 BED: DIS: 05/15/2023 SPEC #: [id number] RECD: 05/15/23 12:02 STATUS: NICK HUE #: [id number] FAUSTO: 05/15/23 07:[address]: Seven Briggs DEPT: SURGICAL PATHOLOGY RECD BY: Irma Mittal ENTERED: 05/16/23 07:42 SP TYPE: TOTAL KNEE OTHR DR: Dr. Ankur Irizarry MD Tissues: Knee, NOS Procedures: Decalcification bone/plaque Surgery Specimen Level IV HEADER OPERATION: ERAS, left total knee replacement robotic arm assisted PRE-OP DIAGNOSIS: Left knee pain TISSUE SUBMITTED: Left knee debrided bone MICROSCOPIC DIAGNOSIS Bone and soft tissue, left knee, total knee replacement/resection: Pieces of bone with degenerative osteoarthritic changes. Fibroadipose tissue, fibroconnective tissue and reactive synovial tissue. BERKLEY: 05/18/23 MICROSCOPIC DESCRIPTION Slides are reviewed. GROSS DESCRIPTION Received is one container designated left knee bone. The specimen consists of multiple fragments of harrison-yellow bone measuring in aggregate 9.0 x 10.0 x 3.0 cm. Also in the specimen container are multiple fragments of fibrocartilaginous tissue measuring in aggregate 6.5 x 2.5 x 1.2 cm. A number of bony fragments contain articular surfaces consistent with tibial plateau and femoral condyle and displaying prominent osteophyte formation, eburnation and bone erosion. Manager Documentation sections are submitted in two cassettes as follows: 1 - soft tissue, 2 - bone after decalcification. / Humberto 05/15/2023 : 5 CPT: 30308, 01495
[2023-05-15] MEDS: TXA 1000mg in NS100 100ml (IVPB at Incision) 660 MG IV (07:40)
[2023-05-15] MEDS: dexAMETHasone 10 MG/ML Vial IV (07:40)
[2023-05-15] MEDS: TXA 1000mg in NS100 100ml (IVPB at Closure) 660 MG IV (08:10)
[2023-05-15] MEDS: 0.9% Normal Saline (Pres. free 10 ML Vial (09:15)
[2023-05-15] MEDS: Epinephrine (1 mg/ml) 1 MG/ML VIAL (09:15)
[2023-05-15] MEDS: Bupivacaine 0.5% PF 10 ML VIAL (09:15)
[2023-05-15] MEDS: dexAMETHasone 4 MG/ML Vial (09:15)
--- NOTE | 2023-05-15 09:53 | RAD_ITS ---
STUDY: X-RAY - LEFT KNEE REASON FOR EXAM: Female, 63 years old. Post op - in PACU. TECHNIQUE: 2 views of the left knee. COMPARISON: None. FINDINGS: There are new postoperative changes related to left total knee arthroplasty with patellar resurfacing. There is a vertical staple line along the anterior aspect of the knee. There is gas in the patellofemoral joint recess and anterior soft tissues, compatible with recent surgery. The orthopedic hardware components are intact. There is no periprosthetic fracture. Normal proximal tibiofibular articulation. RAD/Knee 1 or 2 Views IMPRESSION: New postoperative changes related to left total knee arthroplasty. Electronically Signed: Corby Jones MD at 12:16 EDT ,
--- NOTE | 2023-05-15 10:02 | OP.PCM_ITS ---
Operative Report Date of Procedure: 05/15/23 Preoperative diagnosis: Left knee DJD Postoperative diagnosis: Same Procedure: Left total knee arthroplasty CT guided Robotic Assisted Implant: [place] triathlon press fit, femoral component size3, tibial baseplate size 3, asymmetric patella size 35, polyethylene X3 size 9 CS Anesthesia: Spinal with adductor canal block Tourniquet time: 15 minutes at 300 mmHg Complications: None Condition: Stable to PACU Estimated blood loss: 175 cc Milling/Polishing Operator Tab Yanez. My physician mortgage loan assistant was a vital part of this case. He was important in appropriate retraction during the case, and protection of soft tissues during procedure. His intimate knowledge of the case and my steps aided in safe and expedient completion of the procedure as well as appropriate position of the extremity during the case. He was also vital in assisting with closure under my direct supervision. Indication for procedure: This is a 63-year-old female with long standing degenerative joint disease of the knee who has failed conservative treatment and wished to proceed with elective total knee arthroplasty. Risk benefits and alternatives were reviewed including; risk of bleeding, infection, nerve artery and tissue damage, continued pain, postoperative stiffness, venous thromboembolism, need for postoperative rehabilitation, mechanical feel to the knee, and expected postoperative course. The pre- operative CT and templating was performed with component sizing. Procedure: The patient was met in the preoperative holding area. The operative extremity was identified by both patient and physician and was marked. Patient was met by anesthesia. An adductor canal block was placed by anesthesia postop eratively the patient was brought back to the operating room on a wheeled cart and transferred to the operating table in the supine position. Anesthesia was started. A well-padded tourniquet was placed on the operative extremity. The patient was prepped and draped in the usual sterile fashion. A timeout was called to ensure the proper patient procedure and extremity were being contemplated. An esmarch was used to exsanguinate the extremity. The tourniquet was inflated. A 10 blade scalpel was used to make a midline incision down through the skin and subcutaneous tissue. Skin retractors placed. Bovie and Aquamantis were used to perform meticulous hemostasis. full-thickness flaps were elevated medial and lateral along the joint capsule. A deep blade scalpel was used to perform a medial parapatellar arthrotomy. The knee was brought to full extension. A bovie was used to release the soft tissues off the most proximal aspect of the medial tibial plateau, a three-quarter inch curved osteotome was also used in this process. The infrapatellar fat pad was excised. The suprapatellar fat pad was excised partially anteriorolateraly and portion the anterioromedial pad was elevated from the femur. At this point our intra- articular femoral array was placed at a 45 degree angle proximal and posterior to the medial epicondyle. femoral checkpoint was placed at this time. Our tibi al array was placed greater than 1 hands breath below the incision at a 20 degree angle stab incisions were made with a 15 blade scalpel and pins were placed and attached to the tibial array , tibial checkpoint was placed in the proximal tibial metaphysis. Tourniquet was let down. At this point registration solorio were taken throughout the knee . Once the knee was registered we then tensioned the medial and lateral ligaments in extension and 90 degrees of flexion. We then used these numbers to adjust our components within parameters to balance the knee in both flexion and extension once this was done on our monitor we then proceeded with using the robotic arm to make our tibial plateau cut, anterior and posterior chamfer and distal femur cuts. we removed the cut fragments with the use of a bovie and Amy, we did use a lamina flooring salesperson to insure we visualized and removed all posterior osteophytes and at this time also used the Aquamantis on the posterior joint capsule. There was noted to be a cyst on the medial femoral condyle which was curetted it was not felt to affect the structural integrity of the condyle and was not felt that cementing was necessary. We then trialed and achieved the desired plan with a well-balanced knee. we used the green probe to aure the corresponding tibial rotation based on our CT template. Lug holes were drilled in the femur the tibia preparation was completed with the appropriate sized base plate pinned based on previous rotation aure. An appropriate sized fin punch was used on the tibia and 4 corner drill was used for the press fit component and the patella was prepared by first using a caliper to ensure sufficient bone stock and a patellar reamer to remove the desired amount of bone. lug holes drilled for an asymmetric poly. We then brought the knee through range of motion with excellent patellar tracking. We thoroughly irrigated the knee. Trial components were removed a posterior capsular injection was preformed with our standard cocktail. In addition the aqua Mantis was also used to aid in hemostasis. Betadine rinse was allowed to sit and washed out completely. Components were press-fit into place. Aricept rinse was then used followed by several more liters of irrigation after it was allowed to sit. The joint capsule was closed with #1 Ethibond [id number] in the upper part of the arthrotomy and #1 Vicryl in the lower part of the arthrotomy. , Followed by 2-0 Vicryl in the subcutaneous tissues with thompson in the skin. Arrays and checkpoints were removed prior to closure all counts were correct stab incisions were closed with a staple standard dressing in the form of Mepilex AG for the main incision and a small Mepilex over the pin holes. Thigh-high ARTHUR hose applied over top of dressing. Patient tolerated the procedure well and was directed to PACU in stable condition . There were no intraoperative complications.
--- NOTE | 2023-05-15 10:03 | DCINST_ITS ---
Discharge Instructions Diet Discharge Diet: No restrictions Dressing / Incision Call your doctor if you observe: Shortness of breath and Chest pain Additional Dressing/Incision Instructions:: Ice and elevate lower extremities 2 weeks while not ambulating. Ambulation is encouraged. Weight bearing as tolerated. Use assistive devise for stability. Encourage FULL knee extension and flexion 1 time EVERY time you get up and down and MULTIPLE times per day. No showering until 72 hours after surgery. Begin showering postop day #3. Remove the dressing prior to shower and gently wash with warm water and antibacterial soap then pat dry and place abdominal pad (or plain gauze) and ARTHUR hose over top. This is to be done daily. Do not submerge for 3 weeks. If not showering daily after the initial 72 hours then you must clean incision and change dressing daily. Do not allow animals near the incision area. Keep clean. Follow anti-coagulation recommendations as prescribed. Do not take any NSAIDs while on blood thinner. Do not take any additional narcotic pain medication other than what was prescribed on your surgery day without discussing with physician. Narcotic medication can be addictive. Do not drink alcohol while taking narcotics. Supplement narcotic prescription with acetaminophen 1000 mg 4 times a day. Start physical therapy. If you are not currently scheduled for physical therapy or you are unsure of appointment time please call office [place] to arrange. Call Dr. Briggs with any concerns. Follow Up Care Please Follow Up With: Seven Briggs DO When: 2 weeks Test Results: Test results from this visit will be discussed in further detail at your follow- up appointment, if applicable. Discharge Plan Admission Primary Reason for Your Visit: Left total knee arthroplasty Attending Provider: Seven Briggs Primary Care Provider: Ankur Irizarry Discharge Orders/Prescriptions Prescriptions: New acetaminophen [acetaminophen] 500 mg tablet 1,000 mg PO Q6H PRN Qty: 100 0RF cephalexin [cephalexin] 500 mg capsule 1,000 mg PO Q8 Qty: 4 0RF Rx Instructions: take 2 tabs at 9:00 pm and 2 tabs after 5 am when you wake up Eliquis 2.5 mg tablet 2.5 mg PO BID Qty: 28 0RF Rx Instructions: Begin morning after surgery oxycodone 5 mg tablet 5 - 10 mg PO Q4H PRN (Reason: pain) 7 Days Qty: 60 0RF No Action multivitamin Liquid 15 ml PO DAILY amoxicillin 500 mg tablet 2,000 mg PO ONCE Qty: 4 2RF Rx Instructions: take 4 tabs within 1 hr prior to dental procedure. mupirocin 2 % ointment 1 applic topical BID Qty: 15 0RF Rx Instructions: apply pea size amount to each nare 2x/day until 05/15/23 Referrals / Follow Up: Ankur Irizarry MD [Primary Care Provider] - Disposition Disposition (needs filled in before D/C Order can be placed): Home, Self Care
[2023-05-15] MEDS: Lactated Ringers 1,000 ML 125 ML IV (11:29)
== END 2023-05-15 16:46 | disposition home or self-care (01) ==
LOC: SDC 05:27 → AC 05:27
PROVIDERS: Anesthesiology; PCP Family Medicine; Referring Provider Orthopaedic Surgery; Visit Provider Orthopaedic Surgery
PROC: 0SRD0JZ Replacement of Left Knee Joint with Synthetic Substitute, Open Approach (ICD-10-PCS; CPT 27447; principal; 2023-05-15 07:00)
DX: M17.12 Unilateral primary osteoarthritis, left knee (principal)
CPT/HCPCS: 27447; S2900; 64447; 01402; 36415; 73560; 80048; 82962; 82985; 83036; 83735; 85025; 85610; 85730; 86850; 86900; 86901; 88305; 88311; 93005; 97162; C1776; J7120; J2405; J3475; J3490